=== PATIENT | male | born 1990 | race Caucasian/White ===

== ENCOUNTER 2020-01-15 09:03 | Emergency (ER) | payer OTHER, SELFPAY ==
[2020-01-15 09:11] VITALS: BP 130/74; PULSE 92; RESP 20; TEMP 37.1; O2SAT 100
--- NOTE | 2020-01-15 09:21 | ED.GENADULT ---
HPI - General Adult General Chief complaint: Upper Respiratory Infection Stated complaint: TIRED/FEVER/SORE THROAT/PEÑA/COUGH Time Seen by Provider: 01/15/20 09:22 Source: patient and RN notes reviewed Limitations: no limitations History of Present Illness HPI narrative: This is a 29 years old male presents to the office for an evaluation of flu like symptoms since Thursday. Symptoms include fever, chils, achy, sore throat, congestion and cough. He does not smoke. Denies sick contact. He did not recieved influenza vaccine for the season. Related Data Allergies Allergy/AdvReac Type Severity Reaction Status Date / Time No Known Drug Allergies Allergy Unknown none Verified 01/15/20 09:10 Review of Systems Review of Systems: Narrative: CONSTITUTIONAL: Reports fever, chills, sweats. EYES: Denies visual changes, redness, discharge. ENT: Reports rhinorrhea, congestion, sore throat, otalgia. CARDIOVASCULAR: Denies chest pain RESPIRATORY: Denies dyspnea, wheezing. Reports cough GASTROINTESTINAL: Denies abdominal pain, nausea, vomiting, diarrhea. GENITOURINARY: Denies urinary symptoms SKIN: Denies rash MUSCULOSKELETAL: Denies acute back pain NEUROLOGIC: Denies lightheaded PMFSH Social History Social History (Updated 01/15/20 @ 09:37 by NISH Gardner) Smoking status: Never smoker Comments At time of signature, I agree with nursing past medical, surgical, social and family history. There is no relevant family history pertinent to the presenting complaint. Exam Narrative: Exam Narrative: GENERAL: This is a well-nourished, well-developed patient, ill apparent but not in acute distress. EYES:Sclera clear/white. Vision is grossly intact. EARS: External ears normal, auditory canals clear and without drainage, TMs normal without perforation. Hearing grossly intact. NOSE: External nose normal with no obvious nasal discharge, nares erythema and edematous THROAT: Mucous membranes moist, posterior pharynx clear with drainage. NECK: Neck supple, non-tender without lymphadenopathy, masses or thyromegaly. CARDIOVASCULAR: Regular rate and rhythm without murmurs, gallops, or rubs. RESPIRATORY: Clear to auscultation. Breath sounds equal bilaterally. No wheezes, rales, or rhonchi. GASTROINTESTINAL: Abdomen soft, non-tender, nondistended. Bowel sounds are active. No hepato-splenomegaly, or palpable masses. No guarding. SKIN: warm, intact with no suspicious lesions or rash, good texture and turgor. NEURO: awake, alert, and oriented to person, place and time. There were no obvious focal neurologic abnormalities. Steady gait Nesha Coma Scale Eye Opening: Spontaneous 4 Nesha Coma Scale Motor: Obeys Commands 6 Nesha Coma Scale Verbal: Oriented 5 Course Vital Signs Vital signs: Vital Signs Temperature 98.7 F 01/15/20 09:11 Pulse Rate 92 01/15/20 09:11 Respiratory Rate 01/15/20 09:11 Blood Pressure 130/74 01/15/20 09:11 Pulse Oximetry 100 01/15/20 09:11 Temperature 98.7 F 01/15/20 09:11 Pulse Rate 92 01/15/20 09:11 Respiratory Rate 01/15/20 09:11 Blood Pressure 130/74 01/15/20 09:11 Pulse Oximetry 100 01/15/20 09:11 Medical Decision Making MDM Narrative Medical decision making narrative: Discharge instructions reviewed with patient, as well as provided in writing per nursing staff. The instructions also include specific and strict return/GO TO THE ER as well as f/u information. All questions have been answered, and the patient deny any further questions with discharge and discharge plan. Differential Diagnosis Differential Diagnosis: pneumonia, Allergic Rhinitis, Upper respiratory cough syndrome, Pharyngitis, Sinusitis, Bronchitis, otitis media, viral URI, Asthma/reactive airway disease, influenza Vital Signs Vital Signs: Vital Signs Temperature 98.7 F 01/15/20 09:11 Pulse Rate 92 01/15/20 09:11 Respiratory Rate 01/15/20 09:11 Blood Pressure 130/74 01/15/20 09:11
== END 2020-01-15 09:43 | disposition home or self-care (01) ==
PROVIDERS: Emergency Provider Nurse Practitioner
DX: J10.1 Influenza due to other identified influenza virus with other respiratory manifestations (principal)
CPT/HCPCS: 87081; 87804; 87880; 99213; G0463

== ENCOUNTER 2022-11-09 09:23 | Emergency (ER) | payer OTHER, SELFPAY ==
[2022-11-09 09:34] VITALS: BP 119/76; PULSE 92; RESP 16; TEMP 38; O2SAT 99
--- NOTE | 2022-11-09 10:12 | ED.URI ---
HPI - URI/Sore Throat General Chief Complaint: Upper Respiratory Infection Stated Complaint: fever, nausea, vomitting, diarrhea Time Seen by Provider: 11/09/22 10:12 Source: patient and RN notes reviewed Mode of arrival: ambulatory Limitations: no limitations History of Present Illness HPI Narrative: 32-year-old male presented for complaint of nausea vomiting, diarrhea for 2 days. Endorses decreased appetite and fatigue, and fever in the low 100s. He has taken ibuprofen. Reports his symptoms improved today, able to tolerate fluids and denies abdominal pain today. He denies sick contacts. Related Data Home Medications Medication Instructions Recorded Confirmed escitalopram oxalate 10 mg tablet 10 mg PO DAILY 11/09/22 11/09/22 oxybutynin chloride 10 mg 10 mg PO DAILY 11/09/22 11/09/22 tablet,extended release 24 hr Allergies Allergy/AdvReac Type Severity Reaction Status Date / Time No Known Drug Allergies Allergy Unknown none Verified 11/09/22 09:49 Review of Systems Review of Systems: ROS per HPI All systems reviewed & are unremarkable except as noted in HPI and below [facility] Social History Social History Smoking status: Never smoker Comments At time of signature, I have reviewed and agree with nursing past medical, surgical, social and family history unless otherwise noted. Please see nursing chart for further information. There is no relevant family history pertinent to the presenting complaint Exam Narrative: GENERAL: Well-appearing, and in no acute distress. EYES: EOMI. Conjunctivae normal. ENT: Mucous membranes pink and moist. CHEST: No respiratory distress. Clear to auscultation. HEART: Regular rate and rhythm. No murmur appreciated. Normal peripheral pulses. ABDOMEN: abd soft, nondistended, normal active bowel sounds. Nontender abdomen; No guarding, rebound tenderness, asymmetry EXTREMITIES: Normal range of motion. No edema. SKIN: Warm, dry, no rash. Capillary refill normal. Normal skin turgor. NEURO: Alert and oriented x3. PSYCH: Normal affect. Course Course Emergency Course: Patient is aware of diagnosis, understands and agrees to treatment plan. Anticipatory guidance given. Patient agrees to follow-up as directed and is aware of reasons to seek care at the emergency department. Portions of this record may have been created with voice recognition software Level of Care: Express Care Visit Vital Signs Vital signs: Vital Signs Temperature 100.4 F H 11/09/22 09:34 Pulse Rate 92 11/09/22 09:34 Respiratory Rate 16 11/09/22 09:34 Blood Pressure 119/76 11/09/22 09:34 Pulse Oximetry 99 11/09/22 09:34 Temperature 100.4 F H 11/09/22 09:34 Pulse Rate 92 11/09/22 09:34 Respiratory Rate 16 11/09/22 09:34 Blood Pressure 119/76 11/09/22 09:34 Pulse Oximetry 99 11/09/22 09:34 MDM - URI/Sore Throat MDM Narrative Medical decision making narrative: flu negative. Discussed with pt other etiologies/viruses that can cause symptoms. Advised supportive measures and signs/symptoms to go to the ER. Pt is appropriate for outpt treatment and f/u. Differential Diagnosis Differential diagnosis: Likely viral infection and other (Gastroenteritis, food poisoning, dehydration) Lab Data Labs: Influenza A Screen Negative Reference Range: Negative Influenza B Screen Negative Reference Range: Negative Discharge Plan Discharge Clinical Impression: Nausea vomiting and diarrhea Patient Disposition: Home, Self-Care Condition: Stable Additional Instructions: Stay hydrated. Take small sips of fluid containing electrolytes frequently. Clear liquids (broth, jello, tea, sprite, pedialyte) Beaver foods (bananas, rice, applesauce, toast, crackers) Avoid fatty, greasy, fried o
== END 2022-11-09 10:30 | disposition home or self-care (01) ==
PROVIDERS: Emergency Provider Nurse Practitioner Family
DX: R11.2 Nausea with vomiting, unspecified (principal); R19.7 Diarrhea, unspecified
CPT/HCPCS: 87804; 99213; G0463